=== PATIENT | male | born 1945 | race Caucasian/White ===

== ENCOUNTER 2016-08-22 12:06 | Inpatient (IN) | payer OTHER, MEDICAID ==
--- NOTE | 2016-08-22 12:26 | ED Physician Chart ---
Chief Complaint/HPI - Patient Information Date Seen:: 08/22/16 Time Seen:: 12:20 Chief Complaint:: face lac History of Present Illness:: pt says he fell trying to get out of bed this am...he fell and hit rt face and has lac above rt eyebrow. pt seems somewhat unreliable historian and sometimes smiles and nods ambiguously to same questions repeatedly while I state over and over that I dont understand his response..other times he makes seemingly cogent responses. He denies any associated LOC. pt denies any acute neck or chest or back or abd pains. no recent illness. pt denies feeling dizzy or weak or having palpitations or chest pains before his fall. Allergies:: Allergies Allergy/AdvReac Type Severity Reaction Status Date / Time No Known Allergies Allergy Verified 08/22/16 12:12 Vitals:: Vital Signs - 8 hr 08/22/16 12:06 Temp 97.9 F HR 68 RR 16 BP 100/55 O2 Sat % 96 Historian:: Patient, Medical Records Review of Systems - Review of Systems General/Constitutional: No fever, No chills, No weight loss, No weakness, No diaphoresis, No edema, No loss of appetite Skin: No skin lesions, No rash, Bruising (left cheek has ecchymosis (appears older than today).seems nontndr in same area) Head: Headache, No light-headedness Eyes: No loss of vision, No pain, No diplopia ENT: No earache, No nasal drainage, No sore throat, No tinnitus Neck: No neck pain, No swelling, No thyromegaly, No stiffness, No mass noted Cardio Vascular: No chest pain, No palpitations, No PND, No orthopnea, No edema Pulmonary: No SOB, No cough, No sputum, No wheezing GI: No nausea, No vomiting, No diarrhea, No pain, No melena, No hematochezia, No constipation, No hematemesis G/U: No dysuria, No frequency, No hematuria Musculoskeletal: No bone or joint pain, No back pain, No muscle pain Endocrine: No polyuria, No polydipsia Psychiatric: No prior psych history, No depression, No anxiety, No suicidal ideation Hematopoietic: No bruising, No lymphadenopathy Allergic/Immuno: No urticaria, No angioedema Neurological: No syncope, No focal symptoms, No weakness, No paresthesia, No headache, No seizure, No dizziness, Confusion, No vertigo Past Medical History - Past Medical History Past Medical History: Dyslipidemia, PUD/GERD, Other (gi bleed, chronic pain syndrome, anemia, ) Social History: Care Facility Medication: Reviewed Family Medical History - Family Member Mother History Unknown: Yes Ethnicity: Living Status: Unknown Hx Family Cancer: (unknown) Hx Family Coronary Artery Disease: (UNKNOWN) Hx Family Congestive Heart Failure: (UNKNOWN) Hx Family Hypertension: (UNKNOWN) Hx Family Stroke: (UNKNOWN) Hx Family Diabetes: (UNKNOWN) Hx Family Seizures: (UNKNOWN) Hx Family Dementia: (UNKNOWN) Hx Family AIDS: (UNKNOWN) Hx Family COPD: (UNKNOWN) Hx Family Hepatitis: (UNKNOWN) Hx Family Psychiatric Problems: (UNKNOWN) Hx Family Tuberculosis: (UNKNOWN) Physical Exam - Physical Examination General/Constitutional: Awake, Well-developed, well-nourished, Alert, No distress, GCS 15, Non-toxic appearing, Ambulatory Eyes: Lids, conjuctiva normal, PERRL, EOMI Skin: Nl inspection, No rash, Well hydrated, No lymphadenopathy Other Skin comments:: left cheek has ecchymosis (appears older than today).seems nontndr in same area there is a linear lac above left eyebrow. no other palpable /vis trauma. neck is nontndr. chest wall is nontndr. back nontndr. ENMT: External ears, nose nl, Nasal exam nl, Lips, teeth, gums nl Neck: Nontender, Full ROM w/o pain, No JVD, No nuchal rigidity, No bruit, No mass, No stridor Respiratory: Nl effort/Exclusion, Clear to Auscultation, No Wheeze/Rhonchi/Rales Cardio Vascular: RRR, No murmur, gallop, rubs, NL S1 S2 GI: No tenderness/rebounding/guarding, No organomegaly, No hernia, Normal BS's, Nondistended, No mass/bruits, No McBurney tenderness : No CVA tenderness Extremities: No tenderness or effusion, Full ROM, normal strength in all extremities, No edema, Normal digits & nails Neuro/Psych: Alert/oriented, DTR's symmetric, Normal sensory exam, Normal motor strength, Judgement/insight normal, Mood normal, Normal gait, No focal deficits Misc: normal gait, Normal back, No paraspinal tenderness Labs/Radiology/EKG Results - Lab Results Results: Laboratory Tests 08/22/16 08/22/16 08/22/16 12:30 12:30 12:30 WBC 6.7 D RBC 3.45 L Hgb 9.2 L Hct 27.9 L MCV 80.8 MCH 26.6 L MCHC Differential 32.9 RDW 21.2 H Plt Count 242 MPV 6.9 Band Neutrophils % 4 Neutrophils (Manual) 71 Lymphocytes 12 L Monocytes 11 H Eosinophils 2 Platelet Estimate ADEQUATE Platelet Morphology NORMAL Anisocytosis 1+ RBC Morph Micro Appear ABNORMAL Sodium 135 L Potassium 3.6 Chloride 106 Carbon Dioxide 27.4 Anion Gap 5.2 L BUN 22 Creatinine 1.2 Est GFR ( Amer) TNP Est GFR (Non-Af Amer) TNP BUN/Creatinine Ratio 18.3 Glucose 101 Calcium 9.1 Creatine Kinase 1971 H CK-MB (CK-2) 27.5 H Troponin I 0.54 H* D - Radiology Results Results: ct brain no bleed. old lacunes ct face pos left orbital blowout fx. , bilat zygoma arch fxs. nasal fx. - EKG Interpretations EKG Time:: 12:25 Rhythm: nsr 63 [place]: -3 Comments:: no st/t changes. Assessment Location:: 4cm lac horrizontal above rt eyebrow. no deep injury. no nerve or vascular inj. no active bleed. no f.b. Laceration Type:: Simple Wound Length: 4 cm Prep/Irrigation:: betadyne prep//wash w copious NS. Inspection: No dirt/debris, NO FB Local Anesthetic:: lido w epi 1 pct...4ml local Suture Type and #: 5.0 prolene x 6 simple sutures w good skin approximation. ED Septic Shock - . Is Septic Shock (SBP<90, OR Lactate>4 mmol\L) present?: No - <6hrs of presentation: Vital Signs: Vital Signs - 8 hr 08/22/16 12:06 Temp 97.9 F HR 68 RR 16 BP 100/55 O2 Sat % 96 Reassessment (Disposition) - Reassessment Reassessment:: ana Del Valle...will admit (6:35p) Reassessment Condition:: Unchanged - Diagnosis Diagnosis:: 1 mulitple facial fx of uncertain acuity ; bilat zygoma arch fx's, nasal fx, left orbital wall blowout fx. into l maxillary sinus 2 elevated troponin of uncertain signifigance r/o TX 3 facial lac 4cm s/p sutured in ED - Patient Disposition Admitted to:: Telemetry Condition at Disposition:: Unchanged
[2016-08-22 12:33] LABS: HEMATOCRIT 27.9 % (39.0-49.0); HEMOGLOBIN 9.2 gm/dL (12.6-17.4); MEAN CELL VOLUME 80.8 fl (80-99); MEAN CORPUSCULAR HEMOGLOBIN 26.6 pg (27.0-31.0); MEAN CORPUSCULAR HGB CONC 32.9 pg (28.0-36.0); MEAN PLATELET VOLUME 6.9 fl; PLATELET COUNT 242 Th/cmm (150-400); RED BLOOD COUNT 3.45 Mil/cmm (3.80-5.80); RED CELL DISTRIBUTION WIDTH 21.2 % (11.5-20.0)
[2016-08-22 12:35] LABS: WHITE BLOOD COUNT 6.7 Th/cmm (4.8-10.8)
[2016-08-22 12:47] LABS: BAND NEUTROPHILE 4 % (0-10); EOSINOPHIL 2 % (0-5); NEUTROPHILS 71 % (40-80); TOTAL CELLS COUNTED 100
[2016-08-22 12:48] LABS: ANISOCYTOSIS 1+; PLATELET ESTIMATE ADEQUATE (NORMAL); PLATELET MORPHOLOGY NORMAL (NORMAL)
[2016-08-22 12:54] LABS: ANION GAP 5.2 (7.0-16.0); BUN - UREA NITROGEN 22 mg/dL (7-25); BUN/CREATININE RATIO 18.3; CALCIUM SERUM 9.1 mg/dL (8.6-10.3); CARBON DIOXIDE 27.4 mEq/L (21.0-31.0); CHLORIDE 106 mEq/L (98-107); CREATININE - SERUM 1.2 mg/dL (0.7-1.3); GLUCOSE 101 mg/dL (70-105); POTASSIUM SERUM 3.6 mEq/L (3.5-5.1); SODIUM SERUM 135 mEq/L (136-145)
--- NOTE | 2016-08-22 13:08 | Diagnostic Imaging Report ---
Head CT without intravenous contrast Indication: Fall Comparison: None Technique: Axial images were obtained from the vertex to the skull base without IV contrast. Coronal reconstructions were made. Total DLP: 583, CTDI32.6 FINDINGS: Images of the brain obtained without contrast demonstrate no evidence of acute hemorrhage. Atrophy is noted. Moderate supratentorial white matter disease is noted. Old bilateral basal ganglia infarcts are noted. The ventricles and basal cisterns are patent. No mass effect or midline shift. Atherosclerosis is noted. No evidence of a skull fracture or focal soft tissue swelling. The visualized paranasal sinuses are clear. There is small amount of fluid within the right mastoid air cells. IMPRESSION: No evidence of an acute intracranial hemorrhage. Atrophy. Moderate supratentorial white matter disease which is nonspecific and may be due to chronic microvessel ischemia. 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 Atherosclerotic vascular disease. Small amount of fluid in the right mastoid air cells.
--- NOTE | 2016-08-22 13:09 | Diagnostic Imaging Report ---
CT maxillofacial bones without IV contrast History: Trauma Comparison: Head CT performed same day Technique: Axial images of the maxillofacial bones are obtained without contrast. Reconstructions were made. Total DLP 327 CTD I 15.6 Findings: There is soft tissue swelling seen along the right supraorbital and periorbital regions. Age indeterminate but likely chronic nondisplaced bilateral zygomatic arch fractures are noted. There are also displaced fracture of the left orbital floor and left lamina papyracea which may also be chronic. No evidence of sinus opacification or air-fluid levels within the paranasal sinuses. Age-indeterminate fractures of the anterior and lateral wall of the left maxillary sinus are also noted. Age-indeterminate nasal fractures are seen with rightward deviated nasal septum. The bilateral TMJ joints are intact. Dental disease is seen with diffuse loss of the dentition IMPRESSION: Age-indeterminate possibly chronic fractures of the left orbital floor and left lamina papyracea with herniation of fat noted in this regions. Please correlate with clinical history and old exams. Additional age-indeterminate, but possibly chronic fractures involving the anterior and lateral awad of the left maxillary sinus. Additional age indeterminant possibly chronic fractures of the nasal bones and bilateral zygomatic arches. Soft tissue swelling and injury of the right supraorbital and right periorbital regions. Intact bilateral globes.
[2016-08-22] MEDS ORDERED: EPINEPHRine /Lidocaine 1% 20 mL Vial INJ ONE (13:21)
[2016-08-22 13:22] LABS: CREATINE KINASE MB 27.5 ng/mL (0.6-6.3)
[2016-08-22] MEDS: Hydrocodone/APAP 5mg/325mg Tab PO PRN (22:16)
[2016-08-22] MEDS: Atorvastatin Calcium 10 MG TAB PO SCH (22:17)
[2016-08-22] MEDS ORDERED: Pneumococcal Vaccine 0.5 mL Vial IM ONE (22:49)
[2016-08-23] MEDS: Hydrocodone/APAP 5mg/325mg Tab PO PRN ×4 (03:22→23:17)
[2016-08-23 06:04] LABS: HEMOGLOBIN 8.7 gm/dL (12.6-17.4); MEAN CORPUSCULAR HEMOGLOBIN 27.4 pg (27.0-31.0); MEAN CORPUSCULAR HGB CONC 33.4 pg (28.0-36.0); MEAN PLATELET VOLUME 7.2 fl; PLATELET COUNT 194 Th/cmm (150-400); RED BLOOD COUNT 3.17 Mil/cmm (3.80-5.80); RED CELL DISTRIBUTION WIDTH 21.2 % (11.5-20.0)
[2016-08-23 06:15] LABS: WHITE BLOOD COUNT 3.9 Th/cmm (4.8-10.8)
[2016-08-23 06:34] LABS: ALB/GLOB RATIO 1.3 (1.0-1.8); ALKALINE PHOSPHATASE 66 U/L (34-104); BILIRUBIN,TOTAL 0.3 mg/dL (0.3-1.0); BUN - UREA NITROGEN 22 mg/dL (7-25); BUN/CREATININE RATIO 27.5; CALCIUM SERUM 8.6 mg/dL (8.6-10.3); CARBON DIOXIDE 28.3 mEq/L (21.0-31.0); CHLORIDE 107 mEq/L (98-107); CREATININE - SERUM 0.8 mg/dL (0.7-1.3); GLUCOSE 97 mg/dL (70-105); POTASSIUM SERUM 3.3 mEq/L (3.5-5.1); SGOT 52 U/L (13-39); SGPT/ALT 15 U/L (7-52); SODIUM SERUM 137 mEq/L (136-145)
[2016-08-23 08:27] LABS: BASOPHIL 1 % (0-3); EOSINOPHIL 7 % (0-5); NEUTROPHILS 53 % (40-80); TOTAL CELLS COUNTED 100
[2016-08-23 08:28] LABS: ANISOCYTOSIS 1+; PLATELET ESTIMATE ADEQUATE (NORMAL); PLATELET MORPHOLOGY NORMAL (NORMAL); POLYCHROMASIA 1+
[2016-08-23] MEDS ORDERED: Non-Formulary Item 1 EA (Buspirone Hcl [Buspirone Hcl] 10 MG) PO SCH (09:00)
[2016-08-23] MEDS ORDERED: Pantoprazole 40 mg EC Tab PO SCH (09:00)
--- NOTE | 2016-08-23 11:38 | Diagnostic Imaging Report ---
Lumbar spine (3 views) HISTORY: Pain Minimal retrolisthesis of L5 relative to L4. Minimal narrowing of the L4-5 interspace. Degenerative spur formation seen about the endplates of all vertebrae minimal compression involving the superior endplate of L2. Due to positioning, this is more conspicuous than on the prior exam of 07/30/2016. No definite acute abnormalities. Surgical screws noted about the right acetabular region. IMPRESSION: 1. No significant change from 07/30/2016. 2. Mild diffuse degenerative changes with slight compression involving the superior endplate of L2.
--- NOTE | 2016-08-23 11:39 | Diagnostic Imaging Report ---
Pelvis HISTORY: Pain The exam demonstrates 2 surgical screws traversing the left acetabular region. Deformity of the left superior pubic ramus consistent with old trauma. No definite acute abnormalities. IMPRESSION: 1. Surgical changes about the left acetabular region 2. Deformity involving the left pubic symphysis and left superior pubic ramus consistent with old trauma.
--- NOTE | 2016-08-23 11:57 | History & Physical ---
CHIEF COMPLAINT: Status post fall, head trauma, fracture of the left orbit and bilateral zygomatic arch. HISTORY OF PRESENT ILLNESS: This is a 70-year-old male who presents to [facility] ER from extended care facility. The patient sustained a fall out of his bed and sustained trauma to the right side of his face, which required sutures above the right eyebrow. He denied any loss of consciousness. Complains now of pain to his lower back as well as to his left hip. The patient had a CT in the ER, which revealed chronic fractures to the left orbit, bilateral zygomatic fractures as well as a chronic fracture to the nasal bones. The patient while in the ER also had some routine lab work, which revealed hemoglobin of 9.2, hematocrit 27.9. His sodium was normal at 135, potassium 3.6, chloride 106, bicarb 27, BUN 22, creatinine 1.2 and glucose 101. While in the ER, troponin-I was noted to be elevated at 0.54. After discussing with the ER doctor, the patient was to be kept overnight for evaluation due to the elevated troponin levels. PAST MEDICAL HISTORY: Includes chronic pain syndrome, has a history of muscle weakness ____, has a history of anemia, also history of GI bleeding, gastroesophageal reflux disease, hyperlipidemia, IBS, neuropathy, also has psychiatric disorder. ALLERGIES: No known drug allergies. FAMILY HISTORY: Noncontributory. SOCIAL HISTORY: The patient is a resident of a prison facility. REVIEW OF SYSTEMS: Everything was essentially negative with the exception of the above complaints. PHYSICAL EXAMINATION: VITAL SIGNS: Temperature 97.9, pulse 77, respirations 15, blood pressure 132/77. GENERAL: This is a 70-year-old male, well developed, well nourished, appears stated age. HEENT: Bilateral contusions to his right and left face with laceration above the right eyebrow. Nasal septum deviated. CARDIOVASCULAR: Regular rate and rhythm. LUNGS: Clear to auscultation. ABDOMEN: Soft, nontender, nondistended. Bowel sounds are active in all 4 quadrants. No rebound tenderness, rigidity, no guarding. EXTREMITIES: No clubbing, cyanosis or edema. Pedal pulses are intact. ASSESSMENT: 1. Status post fall, head trauma. 2. Gait instability 3. Left hip pain and low back pain. 4. Dementia. 5. Anemia. 6. History of chronic pain syndrome. 7. History of muscle weakness. 8. History of gastrointestinal bleeding. 9. Gastroesophageal reflux disease. 10. Hyperlipidemia. 11. Irritable bowel syndrome. 12. Neuropathy. PLAN: See orders. JOB# [id number]
[2016-08-23] MEDS ORDERED: VTE Chemical Prophylaxis Screen/Admission MC PRN (14:15)
[2016-08-23] MEDS ORDERED: Potassium Chloride 20 mEq ER Tab PO ONE ×2 (14:22→16:00)
--- NOTE | 2016-08-23 18:43 | History & Physical ---
HISTORY OF PRESENT ILLNESS: The patient is a 70-year-old. The patient has history of fall, fracture left orbit. CT scan of the orbit shows that the patient has fracture with herniation of fat pad. The patient should be referred to manager dish. I do not know whether the patient has seen one or other. He does not complain of diplopia. Some eye limitation of word. The ____ of the right eye . The patient with recurrent falls. PAST MEDICAL HISTORY: Complains of weakness specially in the left leg. He has some back problems in the past. History of neuropathy, psychiatric disorder, hyperlipidemia, and IBS. ALLERGIES: None known. SOCIAL HISTORY: In a retirement home facility. Does not smoke or drink. REVIEW OF SYSTEMS: Somewhat forgetful. Gait difficulty. Pain and leg weakness. Falls. No definite seizures witnessed. PHYSICAL EXAMINATION: VITAL SIGNS: Temperature of 98.4, blood pressure 140/78, and pulse is around about 76. NECK: Supple. No bruits. HEART: Sounds S1, S2. LUNGS: Clear. ABDOMEN: Soft. NEUROLOGIC: The patient is awake and alert. Will answer questions. Speech is slow, but coherent, gives me his name, his age, did not know day. When ____ with the patient, the patient was asking for pain medications. Cranial: Pupils are reactive to light. The patient has some limitation of movement of the left thigh upward. Need to be followed by manager dish. Pupils are reactive to light. No marked diplopia. Motor: Would lift both arms up about equal. Legs: Weakness in the left leg compared to the right. Reflexes 1+ upper extremity. Knees, right 1+. Left is about -20. Also has a scar over the knee from previous surgery. Ankles -1, difficult to get, specially left side. INVESTIGATIONS: CT scan of the head, orbit fracture as above. Old lacunar infarctions, right and left facial ganglion. ASSESSMENT: Falls, etiology unclear. The patient's weakness, left leg. Neuropathy, probably high risk for falls with gait and instability. The patient will have a CT scan or MRI done of the cervical spine. Firstly to make sure there is no etiology and secondly, the patient with multiple falls. The patient's lab studies. The patient's physical therapy, rehabilitation as he is high risk for falls. JOB# [id number]
[2016-08-23] MEDS: Atorvastatin Calcium 10 MG TAB PO SCH (20:44)
[2016-08-23] MEDS: Fenofibrate, Micronized 134 mg Cap PO SCH (20:44)
[2016-08-23] MEDS ORDERED: Non-Formulary Item 1 EA (Fenofibrate Nanocrystallized [Tricor] 145 MG) PO SCH (21:00)
--- NOTE | 2016-08-24 00:55 | Admit Criteria Form ---
Admit Criteria Forms - Admit Criteria Diagnosis: TELEMETRY CARE Telemetry Admission Guidelines (Place 'X' for any and all applicable criteria): Admission to telemetry [A] may be indicated for ANY ONE of the following(1)(2)(3 )(4)(5): [ X]I. Cardiac disease, including ANY ONE of the following (9)(10)(11)(12)( 13): [ ]a) Postacute CT [ ]b) Low-risk patients with ST-segment elevation CT who have undergone successful percutaneous coronary intervention [ ]c) Unstable angina [ X]d) Suspected CT (until it is ruled out) [ ]e) Post cardiac surgery (first 48 to 72 hours unless complications occur) [ ]f) Acute arrhythmias (including significant tachycardia or bradycardia) [B] [ ]g) Firing of an implantable cardioverter defibrillator [C] [ ]h) Suspected pacemaker or implantable cardioverter defibrillator malfunction (10) [ ]i) New administration or adjustment of an antiarrhythmic drug [D ] [ ]j) Child admitted for acute congestive heart failure [ ]j) Long QT syndrome [ ]k) Advanced heart block (eg, second-degree Mobitz type II, third- degree heart block) [ ]l) Acute myocarditis or pericarditis [ ]m) Short-term (ambulatory or inpatient) monitoring after a cardiac procedure as indicated by ANY ONE of the following [E]: [ ]i) Electrophysiologic studies [ ]ii) Percutaneous coronary intervention with stent placement [ ]iii) Pacemaker placement with cardiac conduction defect [ ]iv) Implantable cardiac defibrillator placement [ ]II. Drug overdose or poisoning with substance that causes arrhythmias or QT prolongation (eg, phenothiazines, sympathomimetic agents, cyclic antidepressants, digitalis, antiarrhythmic drugs)(15) [ ]III. Short-term (ambulatory or inpatient) monitoring after therapeutic or diagnostic procedure requiring conscious sedation or anesthesia (eg, endoscopy, elective cardioversion) [ ]IV. Acute cerebrovascular even[F](18) [ ]V. Massive blood transfusion (eg, at least 10 units of packed red blood cells in 24 hours) [ ]. Variceal bleeding after endoscopy, sclerotherapy, or IV vasopressin [ ]VII. Uncorrected electrolyte abnormalities associated with an increased risk of dangerous arrhythmia [G]; examples include [ ]a) Hyperkalemia with attributable ECG changes [ ]b) Potassium greater than 6.5 mmol/L (mEq/L) in a patient without history of chronic renal disease [ ]c) Prolonged QT attributed to hypokalemia, hypomagnesemia, or hypocalcemia [ ]VIII.Unexplained syncope or other neurologic event suspected of being due to arrhythmia due to a finding that increases risk; examples include(19)(20)(21): [ ]a) High-risk ECG findings (eg, bifascicular block, bradycardia, abnormal QT interval, ventricular pre- excitation) [ ]b) History of previous syncope due to arrhythmia [ ]c) Abnormal ventricular function (eg, reduced ejection fraction ) [ ]d) Exertional or supine syncope [ ]e) Concerning syncope characteristics (eg, sudden loss of consciousness without prodrome) [ ]f) Family history of sudden [ ]g) Use of arrhythmogenic medication [ ]h) Suspected cardiac ischemia [ ]i) Known channelopathy (eg, long QT syndrome, Brugada syndrome, or catecholaminergic paroxysmal ventricular tachycardia) [ ]j) Known structural heart disease (eg, hypertrophic cardiomyopathy , severe valvular disease) [ ]k) Palpitations preceding syncope The original [employer] content created by [employer] has been revised. The portions of the content which have been revised are identified through the use of italic text or in bold, and [facility] [employer] has neither reviewed nor approved the modified material. All other unmodified content is copyright [employer]. Please see references footnoted in the original [employer] edition 2016 Admit Criteria Met?: Yes
--- NOTE | 2016-08-24 02:29 | Consultation ---
PSYCHIATRIC CONSULTATION: REFERRING PHYSICIAN: Walt Barros M.D. GARMENT TAG STRINGER: Levi Dillon M.D., M.P.H. REASON FOR CONSULTATION: Fell down HISTORY OF PRESENT ILLNESS: The patient is a 70-year-old male who is well known to me for treatment in [facility]. The patient fell down and he has been anxious and depressed, and Dr. Barros and Dr. Del Valle asked me to evaluate the patient. Chart reviewed and the patient interviewed. The patient said that he fell down because he tripped. The patient has a history of depression. He currently denies any dizziness. He also has been taking BuSpar at a dose of 10 mg 3 times a day, Lexapro 20 mg every day and Seroquel 100 mg twice a day. PAST PSYCHIATRIC HISTORY: The patient has history of bipolar disorder. PAST MEDICAL HISTORY: The patient was admitted because of falling down. SOCIAL HISTORY: The patient lives at the time being in [place] in an assisted living place. The patient does not drink alcohol or use any street drugs. MENTAL STATUS EXAMINATION: The patient appears his stated age. Anxious. Flat affect. In a depressed mood. Thought process is mainly goal directed. The patient denies auditory or visual hallucinations or delusions. He denies any suicidal or homicidal ideations. The patient is alert and oriented to time, place, person, and situation. Intact immediate, recent and remote memories. Fair insight. Fair judgment. ASSESSMENT PRIMARY DIAGNOSIS: Bipolar disorder, mixed time. TREATMENT PLAN: We will monitor the patient's condition. We will decrease Seroquel and we will decrease Neurontin. Also, we will decrease BuSpar. We will monitor his behavior. Thanks to Dr. Barros and we will follow up with you. JOB# [id number]
[2016-08-24] MEDS: Hydrocodone/APAP 5mg/325mg Tab PO PRN ×2 (06:09→12:36)
[2016-08-24 06:30] LABS: HEMATOCRIT 25.1 % (39.0-49.0); HEMOGLOBIN 8.3 gm/dL (12.6-17.4); MEAN CELL VOLUME 82.2 fl (80-99); MEAN CORPUSCULAR HEMOGLOBIN 27.3 pg (27.0-31.0); MEAN CORPUSCULAR HGB CONC 33.2 pg (28.0-36.0); MEAN PLATELET VOLUME 8.2 fl; PLATELET COUNT 184 Th/cmm (150-400); RED BLOOD COUNT 3.05 Mil/cmm (3.80-5.80); RED CELL DISTRIBUTION WIDTH 21.1 % (11.5-20.0); WHITE BLOOD COUNT 3.9 Th/cmm (4.8-10.8)
[2016-08-24] MEDS ORDERED: Morphine Sulfate 2 mg/mL 1mL Syr IVP PRN (08:15)
[2016-08-24 08:26] LABS: ANISOCYTOSIS 1+; EOSINOPHIL 12 % (0-5); NEUTROPHILS 51 % (40-80); PLATELET ESTIMATE ADEQUATE (NORMAL); PLATELET MORPHOLOGY NORMAL (NORMAL); POLYCHROMASIA 1+; TOTAL CELLS COUNTED 100
[2016-08-24 08:53] LABS: ALB/GLOB RATIO 1.2 (1.0-1.8); ALKALINE PHOSPHATASE 63 U/L (34-104); ANION GAP 4.6 (7.0-16.0); BILIRUBIN,TOTAL 0.3 mg/dL (0.3-1.0); BUN - UREA NITROGEN 21 mg/dL (7-25); BUN/CREATININE RATIO 26.3; CALCIUM SERUM 8.7 mg/dL (8.6-10.3); CARBON DIOXIDE 30.1 mEq/L (21.0-31.0); CHLORIDE 107 mEq/L (98-107); CREATININE - SERUM 0.8 mg/dL (0.7-1.3); GLUCOSE 85 mg/dL (70-105); POTASSIUM SERUM 3.7 mEq/L (3.5-5.1); SGOT 52 U/L (13-39); SGPT/ALT 18 U/L (7-52); SODIUM SERUM 138 mEq/L (136-145)
[2016-08-24] MEDS ORDERED: Ferrous Sulfate 325 MG TAB PO SCH (09:00)
--- NOTE | 2016-08-24 13:39 | Diagnostic Imaging Report ---
MRI cervical spine without IV contrast HISTORY: Falls COMPARISON: None Technique: Multiplanar T1, T2, and STIR weighted sequences of the cervical spine were obtained without IV contrast. FINDINGS: There is no evidence of an acute compression fracture or subluxation. There is slight vertebral body edema along the inferior endplate of C4. Mild to moderate degenerative changes are seen with multilevel disc desiccation. No focal spinal cord abnormality identified. Level by level: C2/C3: Mild to moderate facet degenerative changes. No spinal canal narrowing. There is mild rightward neural foraminal narrowing. C3/C4: Mild to moderate bilateral facet degenerative changes. No spinal canal or neural foraminal narrowing. C4/C5: 2 mm posterior disc osteophyte spurring indenting the thecal sac and causing mild spinal canal narrowing. Mild to moderate bilateral facet degenerative changes are noted. There is mild bilateral neural foraminal narrowing C5/C6: 2 mm posterior disc osteophyte spur and mild to moderate facet degenerative changes. There is mild spinal canal and mild bilateral neural foraminal narrowing. C6/C7: 2 mm posterior disc osteophyte spur asymmetric to the right. No spinal canal narrowing. Mild to moderate facet degenerative changes are noted. There is mild right neural foraminal narrowing. C7/T1: No spinal canal or neural foraminal narrowing. The regional soft tissues are grossly unremarkable. IMPRESSION: Mild to moderate degenerative changes greatest from C4 through C7 as detailed above Slight edema seen along the inferior aspect of the C4 vertebral body. Findings may represent Modic type degenerative changes. Traumatic etiology may also be considered but is less likely. No evidence of vertebral body loss of height or subluxation.
--- NOTE | 2016-08-24 13:52 | Diagnostic Imaging Report ---
Carotid ultrasound HISTORY: Falls COMPARISON: None Technique: Longitudinal and transverse sonographic sector images of the carotid arteries were obtained with doppler analysis. FINDINGS: Exam of the right side demonstrates intimal thickening and moderate atherosclerotic vascular disease greatest within the carotid bulb and right internal carotid artery. Elevated velocity of the right ECA is noted at 156 cm/second. Exam of the left-sided demonstrates intimal thickening and moderate atherosclerotic vascular disease greatest within the carotid bulb and left internal carotid artery. The velocity ratios are within normal limits. No evidence of elevated velocities of the common carotid, carotid bulbs, or internal carotid arteries. Antegrade vertebral artery flow is demonstrated bilaterally. IMPRESSION: Moderate atherosclerotic vascular disease. No evidence of hemodynamic significant stenosis. Increased velocity of the right ECA, nonspecific and may be due to vessel tortuosity.
--- NOTE | 2016-08-24 19:40 | Consultation ---
Patient of Dr. Barros. HISTORY AND PHYSICAL: This 70-year-old male patient who had a fall at half-way. Following this, the patient came to the Emergency Room. The patient had suture on the right eyebrow and right orbital fracture. The patient is admitted. During the hospital stay, the patient had slightly elevated troponin level and hence, Cardiology consult was requested. PAST MEDICAL HISTORY: The patient has a history of iron deficiency anemia, GI bleed, GERD, hyperlipidemia, irritable bowel syndrome, peripheral neuropathy, psychiatric disorder, ataxia. FAMILY HISTORY: Unremarkable. SOCIAL HISTORY: No history of smoking, alcohol abuse. ALLERGIES: No known allergies. PHYSICAL EXAMINATION: VITAL SIGNS: Blood pressure 130/80, pulse 70, respirations 20. HEENT: Head: Normocephalic. Eyes: Right eye swollen with orbital fracture. Pupils equal, reactive to light. NECK: JVD flat. Thyroid not palpable. Lymph nodes not palpable. CHEST: Shows increased AP diameter. No kyphosis, scoliosis. LUNGS: Bilateral bronchovesicular breath sounds. HEART: PMI is in fifth intercostal space with lateral to midclavicular line. S1, S2. No S3, S4. Systolic murmur grade 2/6 in lower left sternal border without radiation. ABDOMEN: Soft. Liver, spleen not palpable. No organomegaly. Bowel sounds are active. NEUROLOGIC: The patient has ataxia. CLINICAL IMPRESSION: 1. Right orbital fracture. 2. Slightly elevated troponin level, unlikely coronary artery disease. 3. Ataxia. 4. Dementia. 5. Iron deficiency anemia. 6. Chronic pain syndrome. 7. History of gastrointestinal bleed. 8. Hyperlipidemia. 9. Irritable bowel syndrome. 10. Peripheral neuropathy. PLAN: At the present time, continue present care, have Neurology evaluation. JOB# [id number]
[2016-08-24] MEDS: Fenofibrate, Micronized 134 mg Cap PO SCH (20:53)
[2016-08-24] MEDS: Atorvastatin Calcium 10 MG TAB PO SCH (20:53)
[2016-08-25] MEDS ORDERED: Pantoprazole 40 mg EC Tab PO SCH (07:30)
--- NOTE | 2016-08-27 21:54 | Discharge Summary ---
PRELIMINARY DIAGNOSES: 1. Status post fall. 2. Head trauma. 3. Gait insatiability. 4. Elevated troponin levels. 5. Left hip pain. 6. Low back pain. 7. Dementia. 8. Anemia. 9. Gastroesophageal reflux disease. 10. Hyperlipidemia. 11. History of gastrointestinal bleeding. DISCHARGE DIAGNOSES: 1. Status post fall, head trauma. 2. Gait instability. 3. Hip pain. 4. Low back pain. 5. Dementia. 6. Anemia. 7. Gastroesophageal reflux disease. 8. Hyperlipidemia. 9. History of gastrointestinal bleed. 10. Chronic pain syndrome. HISTORY OF PRESENT ILLNESS: This is a 70-year-old male who presents to [facility] with a history of a fall at a nursing home facility and sustained a fracture to the left orbit. CT scan of the head done in the ER revealed possible fracture to the left orbit. The patient was subsequently admitted for further evaluation and treatment in observation. The patient denies any diplopia. PAST MEDICAL HISTORY: Includes weakness specifically to the left leg. Had some back problems in the past. History of neuropathy, psychiatric disorder, hyperlipidemia, and irritable bowel syndrome. Initial lab work done in the ER revealed initial white count of 3.9, hemoglobin of 9.2, hematocrit of 27.9, and platelets 242,000. Chem-7, sodium 135, potassium 3.6, chloride 106, bicarbonate 27, BUN 22, and creatinine 1.2. HOSPITAL COURSE: The patient improved during his hospital stay, was seen and evaluated by Dr. Davis Ritter as well as Dr. Arauz for recent fall and elevated troponin levels. The patient underwent carotid ultrasound which did not show any hemodynamically significant stenosis. The patient also had an MRI of the cervical spine during his admission. This also showed no spinal cord abnormality. The patient subsequently was discharged in stable condition and was transferred back to his nursing home facility to continue his current medications. [facility]# [id number]
== END 2016-08-24 21:50 | disposition short-term general hospital (02) | DRG 564 ==
LOC: ER 12:06 → TELE 18:53
PROVIDERS: ADMIT Family Medicine; ATTEND Family Medicine
PROC: 0HQ1XZZ Repair Face Skin, External Approach (ICD-10-PCS; principal; 2016-08-22)
DX: S02.81XA Fracture of other specified skull and facial bones, right side, initial encounter for closed fracture (principal); I21.3 ST elevation (STEMI) myocardial infarction of unspecified site; F03.90 Unspecified dementia, unspecified severity, without behavioral disturbance, psychotic disturbance, mood disturbance, and anxiety; E44.1 Mild protein-calorie malnutrition; G62.9 Polyneuropathy, unspecified; S01.111A Laceration without foreign body of right eyelid and periocular area, initial encounter; E78.5 Hyperlipidemia, unspecified; G89.4 Chronic pain syndrome; K21.9 Gastro-esophageal reflux disease without esophagitis; K58.9 Irritable bowel syndrome, unspecified; F29 Unspecified psychosis not due to a substance or known physiological condition; F31.9 Bipolar disorder, unspecified; R27.0 Ataxia, unspecified; D50.9 Iron deficiency anemia, unspecified; W06.XXXA Fall from bed, initial encounter; Y93.89 Activity, other specified; Y92.89 Other specified places as the place of occurrence of the external cause; Y99.8 Other external cause status
CPT/HCPCS: 36415-UA; 70450-TC; 70486-TC; 72100-TC; 72141-TC; 72170-TC; 80048-TC; 80053-TC; 82550-TC; 82553; 84484-TC; 85007-TC; 85027-TC; 93005; 93880-TC; C9113; J1200; J1644; X6488; Z7610